=== PATIENT | female | born 1990 | race Caucasian/White ===

== ENCOUNTER → 2018-04-24 | Outpatient (CLI) | payer OTHER | END | disposition home or self-care (01) | LOC: HKI 15:05 | DX: M25.561 Pain in right knee (principal); F41.8 Other specified anxiety disorders; F90.9 Attention-deficit hyperactivity disorder, unspecified type | CPT/HCPCS: Z7500 ==

== ENCOUNTER → 2018-06-18 | Outpatient (CLI) | payer OTHER | END | disposition home or self-care (01) | LOC: HKI 11:14 | DX: M65.861 Other synovitis and tenosynovitis, right lower leg (principal) | CPT/HCPCS: Z7500 ==